=== PATIENT | male | born 1980 | race African-American/Black ===

== ENCOUNTER 2020-04-27 07:39 | Day surgery (SDC) | payer OTHER ==
[~2020-04-27] VITALS: Ht 190.5 cm; Wt 108.9 kg
[2020-04-27 08:23] VITALS: BP 146/101
[2020-04-27 14:52] VITALS: BP 147/89
== END 2020-04-27 14:45 | disposition home or self-care (01) ==
LOC: GI 07:39 → OR 15:00 → GI 15:00
PROVIDERS: ATTEND Internal Medicine Gastroenterology
DX: K59.04 Chronic idiopathic constipation (principal); K64.8 Other hemorrhoids; K29.50 Unspecified chronic gastritis without bleeding; F31.9 Bipolar disorder, unspecified; E11.9 Type 2 diabetes mellitus without complications; I10 Essential (primary) hypertension; F20.9 Schizophrenia, unspecified; E66.9 Obesity, unspecified; Z68.22 Body mass index [BMI] 22.0-22.9, adult; Z79.899 Other long term (current) drug therapy; Z79.82 Long term (current) use of aspirin
CPT/HCPCS: 43235; 45378; J1200; J1610; J2250; J2310; J3010; J3490